=== PATIENT | male | born 1995 | race Caucasian/White ===

== ENCOUNTER 2016-12-27 19:00 | Emergency (ER) | payer MEDICARE, MEDICAID ==
[~2016-12-27] VITALS: Ht 185.4 cm; Wt 127.2 kg
[2016-12-27] MEDS ORDERED: VITA-115 PO (19:21)
[2016-12-27] MEDS ORDERED: OMEP40CA2 PO (19:21)
[2016-12-27] MEDS ORDERED: COLC1TAB13 PO (19:21)
[2016-12-27] MEDS ORDERED: CLAR10CA3 PO (19:21)
[2016-12-27] MEDS ORDERED: ARIPIPRAZOLE (19:21)
[2016-12-27] MEDS ORDERED: [UNRECOGNIZED DRUG - CODE] SC (19:22)
[2016-12-27] MEDS ORDERED: KLON0.5T PO (20:44)
[2016-12-27 20:46] VITALS: BP 121/73
== END 2016-12-27 21:03 | disposition home or self-care (01) ==
LOC: M ED 19:00
DX: F39 Unspecified mood [affective] disorder (principal); F31.9 Bipolar disorder, unspecified; H91.90 Unspecified hearing loss, unspecified ear; R53.83 Other fatigue; Z79.899 Other long term (current) drug therapy

== ENCOUNTER 2017-06-21 18:08 | Emergency (ER) | payer MEDICARE, MEDICAID ==
[2017-06-21 21:43] LABS: HEMATOCRIT 43.4 % (42.0-52.0); HEMOGLOBIN 15.7 g/dl (14.0-18.0); MEAN CORPUSCULAR HGB CONC 36.2 g/dl (32.0-36.5); MEAN CORPUSCULAR VOLUME 80.2 fl (80.0-96.0); PLATELET COUNT, AUTOMATED 224 10^3/uL (150-450); RED BLOOD COUNT 5.41 10^6/uL (4.30-6.10); RED CELL DISTRIBUTION WIDTH 12.2 % (11.5-14.5); WHITE BLOOD COUNT 8.7 10^3/uL (4.0-10.0)
[2017-06-21 22:00] LABS: AMPHETAMINES LEVEL URINE NEGATIVE (NEGATIVE); BARBITURATES URINE NEGATIVE (NEGATIVE); BENZODIAZEPINES URINE NEGATIVE (NEGATIVE); CANNABINOIDS URINE NEGATIVE (NEGATIVE); COCAINE METABOLITE URINE NEGATIVE (NEGATIVE); METHADONE URINE NEGATIVE (NEGATIVE); OPIATES URINE NEGATIVE (NEGATIVE); PHENCYCLIDINE URINE NEGATIVE (NEGATIVE)
[2017-06-21 22:11] LABS: ALBUMIN 4.4 GM/DL (3.2-5.2); ALBUMIN/GLOBULIN RATIO 1.29 (1.00-1.93); ALKALINE PHOSPHATASE 92 U/L (45-117); ALT/SGPT 73 U/L (12-78); ANION GAP 7 MEQ/L (8-16); AST/SGOT 38 U/L (7-37); BILIRUBIN,DIRECT 0.3 MG/DL (0.0-0.2); BILIRUBIN,TOTAL 1.7 MG/DL (0.2-1.0); BLOOD UREA NITROGEN 12 MG/DL (7-18); CALCIUM LEVEL 8.8 MG/DL (8.5-10.1); CARBON DIOXIDE LEVEL 29 MEQ/L (21-32); CHLORIDE LEVEL 107 MEQ/L (98-107); CREATININE FOR GFR 0.88 MG/DL (0.70-1.30); GLOMERULAR FILTRATION RATE > 60.0 (>60); GLUCOSE, FASTING 92 MG/DL (70-100); POTASSIUM SERUM 4.1 MEQ/L (3.5-5.1); SALICYLATE LEVEL < 1.7 MG/DL (5.0-30.0); SODIUM LEVEL 143 MEQ/L (136-145); TOTAL PROTEIN 7.8 GM/DL (6.4-8.2)
[2017-06-21 22:23] LABS: ACETAMINOPHEN LEVEL < 2.0 UG/ML (10.0-30.0); ETHYL ALCOHOL (ETHANOL) < 0.003 % (0.000-0.010)
== END 2017-06-21 23:02 | disposition home or self-care (01) ==
LOC: M ED 18:08
DX: F32.9 Major depressive disorder, single episode, unspecified (principal); F41.9 Anxiety disorder, unspecified; Z96.21 Cochlear implant status; F17.220 Nicotine dependence, chewing tobacco, uncomplicated; Z91.030 Bee allergy status; Z79.899 Other long term (current) drug therapy
CPT/HCPCS: G0480

== ENCOUNTER 2018-10-22 21:17 | Inpatient (IN) | payer MEDICARE, MEDICAID ==
[~2018-10-22] VITALS: Ht 182.9 cm; Wt 129.9 kg
[~2018-10-22 21:17] MED LIST: ARIPIPRAZOLE; CLAR10CA3 PO; COLC1CAP PO; COLC1TAB13 PO; EPIN0.3I11 IJ; FISH5CAP PO; KLON0.5T PO; OMEP40CA2 PO; RISP0.253 PO; SERT25TA85 PO; TRAZ-163 PO; VITA-115 PO; [UNRECOGNIZED DRUG - CODE] SC
[2018-10-22 22:36] LABS: HEMOGLOBIN 15.3 g/dl (13.5-17.5); MEAN CORPUSCULAR HEMOGLOBIN 30.2 pg (27.0-33.0); MEAN CORPUSCULAR HGB CONC 36.4 g/dl (32.0-36.5); MEAN CORPUSCULAR VOLUME 82.8 fl (80.0-96.0); PLATELET COUNT, AUTOMATED 237 10^3/uL (150-450); RED BLOOD COUNT 5.07 10^6/uL (4.30-6.10); WHITE BLOOD COUNT 7.3 10^3/uL (4.0-10.0)
[2018-10-22 23:00] LABS: AMPHETAMINES LEVEL URINE NEGATIVE (NEGATIVE); BARBITURATES URINE NEGATIVE (NEGATIVE); BENZODIAZEPINES URINE NEGATIVE (NEGATIVE); CANNABINOIDS URINE NEGATIVE (NEGATIVE); COCAINE METABOLITE URINE NEGATIVE (NEGATIVE); METHADONE URINE NEGATIVE (NEGATIVE); OPIATES URINE NEGATIVE (NEGATIVE); PHENCYCLIDINE URINE NEGATIVE (NEGATIVE)
[2018-10-22] MEDS ORDERED: DIVA500T9 PO (23:06)
[2018-10-22] MEDS ORDERED: VENL75CA2 PO (23:06)
[2018-10-22] MEDS ORDERED: OMEP-218 PO (23:06)
[2018-10-22] MEDS ORDERED: EPIP0.3I2 IM (23:06)
[2018-10-22] MEDS ORDERED: HYDRO50TAB PO (23:06)
[2018-10-22] MEDS ORDERED: [UNRECOGNIZED DRUG - CODE] SC (23:06)
[2018-10-22] MEDS ORDERED: ABIL1TAB11 PO (23:06)
[2018-10-22] MEDS ORDERED: IMUR50TA10 PO (23:06)
[2018-10-22 23:09] LABS: ACETAMINOPHEN LEVEL < 2.0 UG/ML (10.0-30.0); ALBUMIN 4.1 GM/DL (3.2-5.2); ALT/SGPT 54 U/L (12-78); BILIRUBIN,DIRECT 0.3 MG/DL (0.0-0.2); BILIRUBIN,TOTAL 1.5 MG/DL (0.2-1.0); BLOOD UREA NITROGEN 13 MG/DL (7-18); CALCIUM LEVEL 8.7 MG/DL (8.5-10.1); CARBON DIOXIDE LEVEL 26 MEQ/L (21-32); CHLORIDE LEVEL 107 MEQ/L (98-107); CREATININE FOR GFR 0.94 MG/DL (0.70-1.30); ETHYL ALCOHOL (ETHANOL) < 0.003 % (0.000-0.010); GLOMERULAR FILTRATION RATE > 60.0 (>60); GLUCOSE, FASTING 86 MG/DL (70-100); POTASSIUM SERUM 3.7 MEQ/L (3.5-5.1); SALICYLATE LEVEL < 1.7 MG/DL (5.0-30.0); SODIUM LEVEL 142 MEQ/L (136-145); TOTAL PROTEIN 7.7 GM/DL (6.4-8.2)
[2018-10-23] MEDS ORDERED: MAALOX 30 ML SUSP *UDC PO PRN (00:15)
[2018-10-23] MEDS ORDERED: ACETAMINOPHEN TAB 650MG DOSE (2X325MG) PO PRN (00:15)
[2018-10-23] MEDS ORDERED: MOM 30ML SUSPENSION UDC PO PRN (00:15)
[2018-10-23] MEDS ORDERED: diphenhydrAMINE 25 MG CAP PO PRN (00:15)
[2018-10-23 02:21] VITALS: BP 114/57
[2018-10-23] MEDS ORDERED: HYDR50TA70 PO (06:08)
[2018-10-23] MEDS ORDERED: CALC500T44 PO (06:08)
--- NOTE | 2018-10-23 10:39 | HPEPDOC ---
General Date of Admission Oct 23, 2018 at 00:07 Chief Complaint The patient is a 23-year-old male who presented to the ER with complaints of estrada icidal ideation History of Present Illness This is a 23-year-old male with past medical history of depression and difficulty hearing who presented to the ER with complaints of suicidal ideation. Patient has reported that this is the second time hes experienced suicidal ideation. He has never acted out on these thoughts. Patient also reports feeling very depressed. This is currently being managed by psychiatry. Hospitalist service was called for medical evaluation. Currently patient denies any headache, nausea, vomiting, chest pain, short of breath, palpitations, abdominal pain, constipation, diarrhea or urinary discomfort. Patient denies any recent changes, weight or his appetite. Home Medications Scheduled Aripiprazole (Abilify) 5 Mg Tablet, 5 MG PO DAILY, (Reported) Azathioprine (Imuran) 50 Mg Tablet, 100 MG PO BID, (Reported) Calcium Carbonate/Vitamin D3 (Calcium 500-Vit D3 200 Tablet) 1 Each Tablet, 1 TAB PO BID for ., (Reported) Canakinumab/Pf (Ilaris 150 mg/ml Vial) 150 Mg/1 Ml Vial, 150 MG SC ASDIRECTED, (Reported) GIVEN EVERY 8 WEEKS Divalproex Sodium (Divalproex Sodium ER) 500 Mg Tab.er.24h, 500 MG PO BID for ., (Reported) Hydroxyzine HCl (Hydroxyzine HCl) 50 Mg Tablet, 50 MG PO QHS for ., (Reported) Omeprazole (Omeprazole) 20 Mg Capsule.dr, 20 MG PO DAILY, (Reported) Venlafaxine HCl (Venlafaxine HCl ER) 75 Mg Cap.er.24h, 225 MG PO DAILY, (Reported) Scheduled PRN Epinephrine (Epipen 2-Max) 0.3 Mg/0.3 Ml Auto.injct, 0.3 MG IM ASDIRECTED PRN for ANAPHYLAXIS, (Reported) Hydroxyzine HCl (Hydroxyzine HCl) 50 Mg Tablet, 50 MG PO BID PRN for ANXIETY, (Reported) Allergies Coded Allergies: bee venom protein (honey bee) (Verified Allergy, Severe, ANAPHYLAXIS, 10/22/18) Past Medical History Medical History Depression and difficulty hearing Surgical History No surgeries reported Family History - Mother and father without any reported medical problems Social History - Denies the use of illicit drugs; patient reports that he uses chewing tobacco. Reports social use of alcohol - Denies recent travel or sick contacts - Lives and 4 children Review of Systems Other systems 10 point review of systems complete, all negative otherwise stated in HPI Vital Signs - Vitals: BP 114/57, HR 68, RR 18, Sat 98%RA, Temp 97.6F - General: No acute distress, AAOx3 - HEENT: NC, AT, PERRLA - CVS: RRR, +S1S2 - Lungs: Fair air entry bilaterally, Clear to auscultation, No wheezing / rales / rhonchi - Abdomen: Soft, Non-distended, Non-tender, Obese - Extremities: No lower extremity edema, No calf tenderness - Neuro: No focal motor or sensory deficit - Skin: No visible rashes Laboratory Data Labs 24H Laboratory Tests 2 10/22/18 22:21: Nucleated Red Blood Cells % (auto) 0.0, Anion Gap 9, Glomerular Filtration Rate > 60.0, Calcium Level 8.7, Aspartate Amino Transf (AST/SGOT) 43H, Alanine Aminotransferase (ALT/SGPT) 54, Alkaline Phosphatase 83, Total Bilirubin 1.5H, Direct Bilirubin 0.3H, Total Protein 7.7, Albumin 4.1, Albumin/Globulin Ratio 1.14, Thyroid Stimulating Hormone (TSH) 2.290, Salicylates Level < 1.7L, Urine Amphetamines Screen NEGATIVE, Urine Benzodiazepines Screen NEGATIVE, Urine Opiates Screen NEGATIVE, Urine Methadone Screen NEGATIVE, Acetaminophen Level < 2.0L, Urine Barbiturates Screen NEGATIVE, Urine Phencyclidine Screen NEGATIVE, Urine Cocaine Metabolite Screen NEGATIVE, Urine Cannabinoids Screen NEGATIVE, Ethyl Alcohol Level < 0.003 CBC/BMP Laboratory Tests 10/22/18 22:21 Red Blood Count 5.07, Mean Corpuscular Volume 82.8, Mean Corpuscular Hemoglobin 30.2, Mean Corpuscular Hemoglobin Concent 36.4, Red Cell Distribution Width 12.0 Plan / VTE VTE Prophylaxis Ordered?: Yes Plan Plan Suicidal ideation - Patient has reported that this is the second time he is experiencing symptoms - Patient reports that history of depression - Currently being managed by psychiatry Difficulty hearing - 2/2 reported trauma / infection at age 2 - Patient has a hearing assist device Obesity - complicating care DVT prophylaxis - c/w early ambulation WILLIS FAULKNER MD Oct 23, 2018 10:39
[2018-10-23] MEDS ORDERED: VENLAFAXINE **XR** 75MG CAPSULE PO ONE (14:00)
[2018-10-23] MEDS: NICOTINE 21MG/24HR 1 EA TRANSDERMAL TD PRN (16:09)
[2018-10-23 18:06] VITALS: BP 135/68
--- NOTE | 2018-10-23 22:38 | MHHPEPDOC ---
General Date Of Admission: Oct 22, 2018 Legal Status: 9.39 Chief Complaint "Depression plus suicidal gesture" History of Present Illness HISTORY OF THE PRESENT ILLNESS: Patient is a 23 -year-old , male, who, as per ED report: " Pt reportedly made threats to kill himself tonight, brother called 911, pt has hx of depression. Chief Complaint Pt brought to ED after brother called 911. Pt is deaf however reads lips well and verbalizes well, declined kitchen and bath designer for interview, no difficulty communicating thoughout interview. Pt has hx of depr ession, has been seen in ED before for evaluations but denies any prior admissions, admits to prior suicidal gesture by wanting to crash his car but stopped himself. Pt is pleasant though guarded, states he and spouse were arguing tonight and he admittedly made threats to kill himself, added he once again had thoughts of crashing his car. Pt now states he no longer feels suicidal however he spoke to ED Physician and told him that he was indeed feeling suicidal, also reported several stressors that he did not share with this brief writer(financial problems). Pt denies HI/AH/VH, denies any substance abuse issues, reports he has been compliant with medications/outpt tx in [place], has had recent medications change?. Psychiatric Review of Systems Depression (2 or more weeks): depressed mood, insomnia/hypersomnia, feelings of worthlesness, suicidal thoughts Bettie (4 or more days of): denies Psychosis: denies PTSD: denies Anxiety: gen/non-specific anxiety Anxiety/ 6 months or more of: sleep disturbance Past Psychiatric History Previous Psychiatric Diagnosis: Depression Previous Psychiatric Admissions: Denies Suicide Attempts: He had a suicidal gesture years ago Psychiatric Follow-up: he says he follows up with a psychiatrist but he can't recall his name Psychiatric medications: . Past Medical History Medical Problems Auditory deficit Head Injury: No Seizures: No Hospitalizations: Yes Surgeries: Yes Family Medical/Psychiatric HX Medical Problems Denies Psychiatric Disorders: No Addiction: No Suicide Attemps/Completions: No Addiction History nicotine (chews tobacco), alcohol (occasional) Social History Childhood: Parents , he has had a limited relationship with his father, he is close to his mother. Stated he has no siblings Abuse/Trauma: Denies Current Living Situation: Lived with and 4 children Education: High School diploma Employment: Unemployed. He receives SSI Social Support: His , but now, she asked hm to leave the house because apparently he was cheating. Legal: Denies Marital: , has 4 children Mental Status Examination General Appearance: well groomed, ds/not appear stated age (loks a little bit older), hospital scubs/clothing Build: overweight Demeanor: average Eye Contact: avoidant Activity: average Behavior: cooperative Speech: slurred (The patient has a problem with spoke language because he has had a hearing impairment since childhood), slow, normal volume Mood: anxious Affect: appropriate, congruent, anxious Thought Process: logical/linear Thought Content (Delusions): denies SI, HI, AVH Thought Content (Other): none reported Thought Content (Aggressive): none reported Perception (Hallucinations): none reported Perception (Other): none reported Cognition (Impairment of): none reported Cognition(Intelligence Est.): average Oriented: Awake, Alert, Oriented times three Insight: poor Judgment: Poor Psychosis: Denies Diagnoses 1. Unspecified depressive disorder 2. R/O Adjustment disorder A-FIB/CHADSVASC A-FIB History Current/History of A-Fib/PAF?: No Current PO Anticoag Therapy: No Age/Risk Factor Scoring CHADSVASC: CHADSVASC Response (Comments) Value Age Risk Factor Age < 65 years old 0 Gender Risk Factor Male 0 Hx of CHF No 0 Hx of HTN No 0 Hx of Stroke/TIA/or VTE No 0 Hx of Diabetes No 0 Hx of Vascular Disease No 0 Total 0 Treatment Treatment ordered: NONE Reason Anticoagulant not given: Not indicated/[id number] Assessment the patient is cooperative and tries to provide with accurate responses but there's a language limitation that makes it hard for him and unfortunately his hearing aid's battery was not working. His is supposed to bring him the battery, even when she was the one who asked him to leave. It is not clear if he cheated on his or if he was about to cheat and she discovered it. In any case, he is in a difficult situation and has not been staying at his house because she is upset with him. However, he told the Supervisor [place] that his plan is to go back home once he is discharged. He signed a HUGH for D/C Dairy Manufacturing Technologist to speak with his . He takes oral Abilify and apparently he is interested in getting the ROSA but he denies symptoms of bettie and if he is not bipolar, we can't administer him the ROSA. More information is needed. Initial Treatment Plan 1. Patient was admitted on a [9.39] status. 2. Complete history was obtained. 3. With patients permission, family will be contacted and database will be expanded. 4. Patients medication regimen will be reviewed and changed accordingly. 5. Patient will be provided with protected environment. 6. Patient will be treated with individual, group, and milieu therapies. 7. Patient will receive supportive psych-education. 8. Discharge planning will commence immediately. 9. Outpatient follow-up treatment will be strongly recommended. 10. The initial treatment plan will focus initially on: * Depression. * Anxiet * Risk for suicide. * Substance abuse. ESTIMATED LENGTH OF STAY: 5-7 DAYS. TIME SPENT COUNSELING AND COORDINATING INITIAL CARE: 50 minutes. Vital Signs Vital Signs Date Time Temp Pulse Resp B/P (MAP) Pulse Ox O2 Delivery O2 Flow Rate FiO2 10/23/18 02:21 97.6 68 18 114/57 (76) 98 10/23/18 01:14 Room Air Laboratory Data 24H Labs Laboratory Tests 2 10/22/18 22:21: Nucleated Red Blood Cells % (auto) 0.0, Anion Gap 9, Glomerular Filtration Rate > 60.0, Calcium Level 8.7, Aspartate Amino Transf (AST/SGOT) 43H, Alanine Aminotransferase (ALT/SGPT) 54, Alkaline Phosphatase 83, Total Bilirubin 1.5H, Direct Bilirubin 0.3H, Total Protein 7.7, Albumin 4.1, Albumin/Globulin Ratio 1.14, Thyroid Stimulating Hormone (TSH) 2.290, Salicylates Level < 1.7L, Urine Amphetamines Screen NEGATIVE, Urine Benzodiazepines Screen NEGATIVE, Urine Opiates Screen NEGATIVE, Urine Methadone Screen NEGATIVE, Acetaminophen Level < 2.0L, Urine Barbiturates Screen NEGATIVE, Urine Phencyclidine Screen NEGATIVE, Urine Cocaine Metabolite Screen NEGATIVE, Urine Cannabinoids Screen NEGATIVE, Ethyl Alcohol Level < 0.003 CBC/BMP Laboratory Tests 10/22/18 22:21 Red Blood Count 5.07, Mean Corpuscular Volume 82.8, Mean Corpuscular Hemoglobin 30.2, Mean Corpuscular Hemoglobin Concent 36.4, Red Cell Distribution Width 12.0 Medications Scheduled Aripiprazole (Abilify) 5 Mg Tablet, 5 MG PO DAILY, (Reported) Azathioprine (Imuran) 50 Mg Tablet, 100 MG PO BID, (Reported) Calcium Carbonate/Vitamin D3 (Calcium 500-Vit D3 200 Tablet) 1 Each Tablet, 1 TAB PO BID for ., (Reported) Canakinumab/Pf (Ilaris 150 mg/ml Vial) 150 Mg/1 Ml Vial, 150 MG SC ASDIRECTED, (Reported) GIVEN EVERY 8 WEEKS Divalproex Sodium (Divalproex Sodium ER) 500 Mg Tab.er.24h, 500 MG PO BID for ., (Reported) Hydroxyzine HCl (Hydroxyzine HCl) 50 Mg Tablet, 50 MG PO QHS for ., (Reported) Omeprazole (Omeprazole) 20 Mg Capsule.dr, 20 MG PO DAILY, (Reported) Venlafaxine HCl (Venlafaxine HCl ER) 75 Mg Cap.er.24h, 225 MG PO DAILY, (Reported) Scheduled PRN Epinephrine (Epipen 2-Max) 0.3 Mg/0.3 Ml Auto.injct, 0.3 MG IM ASDIRECTED PRN for ANAPHYLAXIS, (Reported) Hydroxyzine HCl (Hydroxyzine HCl) 50 Mg Tablet, 50 MG PO BID PRN for ANXIETY, (Reported) Allergies Coded Allergies: bee venom protein (honey bee) (Verified Allergy, Severe, ANAPHYLAXIS, 10/22/18) KYRA WILLIS MD Oct 23, 2018 13:42
[2018-10-24 06:25] VITALS: BP 140/69
[2018-10-24 19:07] VITALS: BP 122/82
[2018-10-24] MEDS: traZODone 50 MG TAB PO PRN (20:45)
[2018-10-25 06:49] VITALS: BP 125/64
[2018-10-25 18:15] VITALS: BP 135/75
[2018-10-25] MEDS: traZODone 50 MG TAB PO PRN (21:17)
--- NOTE | 2018-10-25 22:17 | MHIPN ---
DATE: 10/25/2018 The patient today states "I'm doing good." Says he slept good last, has no complaints. MENTAL STATUS: Eye contact is very good. Verbally spontaneous. No formal thought disorder noted with good effect full range and appropriate. Not psychotic, suicidal or homicidal. Concentration is fair. DIAGNOSIS: 1. Unspecified depressive disorder. 2. Rule out adjustment disorder. TREATMENT AND PLAN: Will continue to monitor the patient for continued stabilization of his mood and continued resolution of any suicidal ideation.
--- NOTE | 2018-10-26 03:01 | MHIPN ---
DATE OF SERVICE: 10/24/2018 The patient today signaled to me that he is deaf right away. He told me that he is feeling good. Denied any depression. He said he slept good, and he denied any suicidal thoughts. MENTAL STATUS EXAMINATION: As I said, the patient is deaf, but he reads lips very well and is able to verbalize well. He is alert, and he is oriented times three. Eye contact is good. Psychomotor activity is (cut off). He told me that his mood is good. His affect is appropriate to his mood. He is not psychotic. He denies suicidal or homicidal ideation. Concentration is fair. Memory appears to be intact. Insight and judgment are fair. DIAGNOSES: 1. Unspecified depressive disorder. 2. Rule out adjustment disorder. TREATMENT PLAN: At this point, we will continue to monitor the patient for continued resolution of suicidal ideations and continued elevation and stabilization of his mood.
[2018-10-26 06:42] VITALS: BP 141/66
[2018-10-26 08:57] VITALS: BP 141/66
[2018-10-26] MEDS: NICOTINE 21MG/24HR 1 EA TRANSDERMAL TD PRN (14:21)
[2018-10-26 18:00] VITALS: BP 133/62
[2018-10-27 06:12] VITALS: BP 110/80
[2018-10-27] MEDS ORDERED: NICO21PAT TD (10:48)
[2018-10-27] MEDS ORDERED: ABIL1TAB11 PO (10:48)
--- NOTE | 2018-10-27 21:12 | MHIPNPDOC ---
[facility] Progress Note Progress Note DATE OF SERVICE: 10/26/18---- late entry HISTORY: HISTORY OF THE PRESENT ILLNESS: Patient is a 23 -year-old , male, who, as per ED report: " Pt reportedly made threats to kill himself tonight, brother called 911, pt has hx of depression. Chief Complaint Pt brought to ED after brother called 911. Pt is deaf however reads lips well and verbalizes well, declined auto design detailer for interview, no difficulty communicating thoughout interview. Pt has hx of depression, has been seen in ED before for evaluations but denies any prior admissions, admits to prior suicidal gesture by wanting to crash his car but stopped himself. Pt is pleasant though guarded, states he and spouse were arguing tonight and he admittedly made threats to kill himself, added he once again had thoughts of crashing his car. Pt now states he no longer feels suicidal however he spoke to ED Physician and told him that he was indeed feeling suicidal, also reported several stressors that he did not share with this proposal lead writer(financial problems). Pt denies HI/AH/VH, denies any substance abuse issues, reports he has been compliant with medications/outpt tx in [place], has had recent medications change?. VITAL SIGNS: See below. NEW TEST RESULTS: See below CURRENT MEDICATIONS: See below. MENTAL STATUS EXAMINATION: Patient is a 23-year old male, who is alert, cooperative, dressed in personal clothes. Speech: has a speech impediment, it's hard at [facility] to understand but he can speak when he has his hearing aide. Language skills are fair (written language is good, understanding is good and he can speak but with difficulty because he has had problems hearing) Thought processes including: linear, coherent Thought content: focused on his discharge, he says he is going to his uncle's house because he doesn't want to argue with his , so, he won't go to his house to avoid being with her. Description of abnormal or psychotic thoughts: denies SI, denies HI denies AV hallucinations and denies thought delusions Judgment: Limited Insight: Limited Orientation: x 3 Recent and remote memory: Intact Attention span and concentration: Good Language: Has speech/language difficulties of expressive language because he has a hearing problem since childhood but he can understand written and spoken lang uage. H Fund of knowledge: average Mood: irritable/anxious Affect: congruent with mood DIAGNOSES: 1. Unspecified depressive disorder 2. R/O Adjustment disorder ASSESSMENT: The patient was anxious before visitation time. His , who has put a restraining order against him, came to visit him and was demanding to know why had I decided to discharge him at noon time when they have their son's birthday alliance party at noon and I said we don't discharge patients based on birthdays, we are discharging him be cause he has improved. Her attitude and her demands were inappropriate. His mother was there with his . He seems to have an ambivalent attitude towards her. He is not suicidal, not homicial and not psychotic. Before his and mother came to the Unit we had a conversation where he wrote on a piece of paper that he was not suicidal wanted to go stay with his uncle because he was going to avoid being with his because they argue too much when they are together. MANAGEMENT PLAN: Discharge tomorrow TIME SPENT: 20 minutes. Vital Signs Vital Signs Date Time Temp Pulse Resp B/P (MAP) Pulse Ox O2 Delivery O2 Flow Rate FiO2 10/27/18 08:08 Room Air 10/27/18 06:12 98.7 76 16 110/80 (90) 10/26/18 08:57 98 Current Medications Current Medications Acetaminophen (Tylenol Tab) 650 mg Q6HP PRN PO HEADACHE or DISCOMFORT; Start 10/23/18 at 00:15; Stop 10/27/18 at 12:56; Status DC Al Hydrox/Mg Hydrox/Simethicone (Mylanta) 30 ml Q4HP PRN PO HEARTBURN/INDIGESTION; Start 10/23/18 at 00:15; Stop 10/27/18 at 12:56; Status DC Aripiprazole (AbiLIFY) 5 mg QAM PO Last administered on 10/27/18at 09:19; Start 10/23/18 at 09:00; Stop 10/27/18 at 12:56; Status DC Diphenhydramine HCl (Benadryl) 25 mg Q6HP PRN PO ANXIETY/AGITATION Last administered on 10/23/18at 11:42; Start 10/23/18 at 00:15; Stop 10/27/18 at 12:56; Status DC Home Med (Med Rec Complete!) ASDIRECTED XX ; Start 10/22/18 at 23:15; Stop 10/22/18 at 23:15; Status DC Magnesium Hydroxide (Milk Of Magnesia) 30 ml DAILYPRN PRN PO CONSTIPATION; Start 10/23/18 at 00:15; Stop 10/27/18 at 12:56; Status DC Nicotine (Nicoderm Cq 21mg) 1 patch DAILY PRN TD craving Last administered on 10/26/18at 14:21; Start 10/23/18 at 00:15; Stop 10/27/18 at 12:56; Status DC Trazodone HCl (Desyrel) 50 mg QHSP PRN PO INSOMNIA Last administered on 10/25/18at 21:17; Start 10/23/18 at 00:15; Stop 10/27/18 at 12:56; Status DC Allergies Coded Allergies: bee venom protein (honey bee) (Verified Allergy, Severe, ANAPHYLAXIS, 10/22/18) KYRA WILLIS MD Oct 27, 2018 20:56
--- NOTE | 2018-10-27 21:34 | MHDSPDOC ---
[facility] Discharge Summary Discharge Summary DATE OF ADMISSION: Oct 23, 2018 at 00:07 DATE OF DISCHARGE: Oct 27, 2018 at 12:42 DISCHARGE DIAGNOSES: 1. Unspecified depressive disorder 2. R/O Adjustment disorder REASON FOR ADMISSION: HISTORY OF THE PRESENT ILLNESS: Patient is a 23 -year-old , male, who, as per ED report: " Pt reportedly made threats to kill himself tonight, brother called 911, pt has hx of depression. Chief Complaint Pt brought to ED after brother called 911. Pt is deaf however reads lips well and verbalizes well, declined broadcast designer for interview, no difficulty communicating thoughout interview. Pt has hx of depression, has been seen in ED before for evaluations but denies any prior admissions, admits to prior suicidal gesture by wanting to crash his car but stopped himself. Pt is pleasant though guarded, states he and spouse were arguing tonight and he admittedly made threats to kill himself, added he once again had thoughts of crashing his car. Pt now states he no longer feels suicidal however he spoke to ED Physician and told him that he was indeed feeling suicidal, also reported several stressors that he did not share with this racebook writer(financial problems). Pt denies HI/AH/VH, denies any substance abuse issues, reports he has been compliant with medications/outpt tx in [place], has had recent medications change?. CONSULTANTS INVOLVED: None TREATMENT AND PROGRESS ON THE UNIT : The patient was admitted to [facility] because he had threatened to kill himself after having an altercation with is . He admitted cheating on his and she kicked him out of the house. He reports having poor self esteem since he has had problems with hearing and with spoken language and he was bullied as a child for that reason. He says he is and he has constant problems with his because she argues too much. He has been going to [place] for treatment and required the Abilify Mantenna injection because he is receiving Abilify but he doesn't have manic symptoms, neither he has a h/o bettie. He has a h/o receiving Venlafaxine and he mentioned his medications had been recently changed but he was not sure if he had been taking Venlafaxine or Effexor. When he spoke with this racebook writer, he denied feeling suicidal but he said that he had been suicidal when he came to the ED. He reports financial stressors, marital stressors. He knew that in order to improve, he needed to leave his house and thus he said he was going to go stay with his uncle to avoid her and he said that maybe after 2 months he will return to his house and his . He adamantly denied being suicidal, homicidal or psychotic. HOSPITAL COURSE: As above DISCHARGE ASSESSMENT: Patient was not homicial, not suicidal and not psychotic at the time of his discharge. He was goal orientated, wanted to go to his uncle's home and continue his OP treatment MENTAL STATUS EXAMINATION ON DISCHARGE: Patient is a 23-year old male, who is alert, cooperative, dressed in personal clothes. Speech: has a speech impediment, it's hard at tmes to understand but he can spe ak when he has his hearing aide. Language skills are fair (written language is good, understanding is good and he can speak but with difficulty because he has had problems hearing) Thought processes including: linear, coherent Thought content: focused on his discharge, he says he is going to his uncle's house because he doesn't want to argue with his , so, he won't go to his house to avoid being with her. Description of abnormal or psychotic thoughts: denies SI, denies HI denies AV hallucinations and denies thought delusions Judgment: Limited Insight: Limited Orientation: x 3 Recent and remote memory: Intact Attention span and concentration: Good Language: Has speech/language difficulties of expressive language because he has a hearing problem since childhood but he can understand written and spoken language. H Fund of knowledge: average Mood: euthymic Affect: congruent with mood, full, reactive, appropriate MEDICATIONS ON DISCHARGE: Scheduled Aripiprazole (Abilify) 5 Mg Tablet, 5 MG PO DAILY for mood, #7 Azathioprine (Imuran) 50 Mg Tablet, 100 MG PO BID, (Reported) Calcium Carbonate/Vitamin D3 (Calcium 500-Vit D3 200 Tablet) 1 Each Tablet, 1 TAB PO BID for ., (Reported) Canakinumab/Pf (Ilaris 150 mg/ml Vial) 150 Mg/1 Ml Vial, 150 MG SC ASDIRECTED, (Reported) GIVEN EVERY 8 WEEKS Hydroxyzine HCl (Hydroxyzine HCl) 50 Mg Tablet, 50 MG PO QHS for ., (Reported) Omeprazole (Omeprazole) 20 Mg Capsule.dr, 20 MG PO DAILY, (Reported) Scheduled PRN Epinephrine (Epipen 2-Max) 0.3 Mg/0.3 Ml Auto.injct, 0.3 MG IM ASDIRECTED PRN for ANAPHYLAXIS, (Reported) Hydroxyzine HCl (Hydroxyzine HCl) 50 Mg Tablet, 50 MG PO BID PRN for ANXIETY, (Reported) Nicotine (Nicotine Patch) 21 Mg Patch.td24, 1 PATCH TD DAILY PRN for craving, # PLAN/FOLLOWUP ARRANGEMENTS: Follow Up Care Education Label * Medical * Medical Follow Up [facility] Follow Up Care Education Label * Mental Health Appt 1 * [facility] The amount of time spent in the coordination of care for this patient was approximately 30 minutes. Vital Signs/I&Os Vital Signs Date Time Temp Pulse Resp B/P (MAP) Pulse Ox O2 Delivery O2 Flow Rate FiO2 10/27/18 08:08 Room Air 10/27/18 06:12 98.7 76 16 110/80 (90) 10/26/18 08:57 98 Medications Scheduled Aripiprazole (Abilify) 5 Mg Tablet, 5 MG PO DAILY for mood, #7 Azathioprine (Imuran) 50 Mg Tablet, 100 MG PO BID, (Reported) Calcium Carbonate/Vitamin D3 (Calcium 500-Vit D3 200 Tablet) 1 Each Tablet, 1 TAB PO BID for ., (Reported) Canakinumab/Pf (Ilaris 150 mg/ml Vial) 150 Mg/1 Ml Vial, 150 MG SC ASDIRECTED, (Reported) GIVEN EVERY 8 WEEKS Hydroxyzine HCl (Hydroxyzine HCl) 50 Mg Tablet, 50 MG PO QHS for ., (Reported) Omeprazole (Omeprazole) 20 Mg Capsule.dr, 20 MG PO DAILY, (Reported) Scheduled PRN Epinephrine (Epipen 2-Max) 0.3 Mg/0.3 Ml Auto.injct, 0.3 MG IM ASDIRECTED PRN for ANAPHYLAXIS, (Reported) Hydroxyzine HCl (Hydroxyzine HCl) 50 Mg Tablet, 50 MG PO BID PRN for ANXIETY, (Reported) Nicotine (Nicotine Patch) 21 Mg Patch.td24, 1 PATCH TD DAILY PRN for craving, #7 Allergies Coded Allergies: bee venom protein (honey bee) (Verified Allergy, Severe, ANAPHYLAXIS, 10/22/18) KYRA WILLIS MD Oct 27, 2018 21:28
== END 2018-10-27 12:42 | disposition home or self-care (01) | DRG 881 ==
LOC: M ED 21:17 → M ED INP 10-23 00:07 → M PSY 10-23 01:23
PROVIDERS: ADMIT Psychiatry & Neurology Psychiatry; ATTEND Psychiatry & Neurology Psychiatry
DX: F43.21 Adjustment disorder with depressed mood (principal); R45.851 Suicidal ideations; Z79.899 Other long term (current) drug therapy; Z91.038 Other insect allergy status; E66.9 Obesity, unspecified